=== PATIENT | female | born 1955 | race African-American/Black ===

== ENCOUNTER 2025-01-25 09:16 | Emergency (ER) | payer MEDICARE ==
[~2025-01-25] VITALS: Ht 167.6 cm; Wt 87.0 kg
[~2025-01-25 09:16] MED LIST: ASPI-1406 PO; CLOP-31 PO; DULA0.75 SQ; LIP40 MT; LOSA25TA26 PO; METO-385 PO
[2025-01-25 10:06] VITALS: TEMP 37.1; O2SAT 97
[2025-01-25] MEDS: ACETAMINOPHEN 500MG TABLET PO ONE (10:41)
[2025-01-25] MEDS: LIDOCAINE 5% PATCH TOP SCH (10:45)
[2025-01-25] MEDS ORDERED: ACET-2708 MT (11:41)
[2025-01-25 11:54] VITALS: BP 150/85; PULSE 74; RESP 16; O2SAT 100
== END 2025-01-25 12:14 | disposition home or self-care (01) ==
LOC: ER 09:34
DX: S82.52XA Displaced fracture of medial malleolus of left tibia, initial encounter for closed fracture (principal); I11.0 Hypertensive heart disease with heart failure; I50.9 Heart failure, unspecified; E11.9 Type 2 diabetes mellitus without complications; Z95.1 Presence of aortocoronary bypass graft; Z79.899 Other long term (current) drug therapy; Z79.82 Long term (current) use of aspirin; Z79.02 Long term (current) use of antithrombotics/antiplatelets; F14.90 Cocaine use, unspecified, uncomplicated; X58.XXXA Exposure to other specified factors, initial encounter; Y93.89 Activity, other specified; Y92.89 Other specified places as the place of occurrence of the external cause; Y99.8 Other external cause status
CPT/HCPCS: 99284; 93970; 29515; 73610; A6449